=== PATIENT | male | born 2000 | race Hispanic/Latino ===

== ENCOUNTER 2025-05-16 12:26 | Observation (INO) | payer SELFPAY ==
[~2025-05-16] VITALS: Ht 170.2 cm; Wt 61.2 kg
--- NOTE | 2025-05-16 12:38 | ERN ---
ED Note History of Present Illness Stated Complaint: LEFT 1ST TOE PAIN Chief Complaint: Toe Pain/Injury Time Seen by MD: 12:30 Dictation: PATIENT IS A 25-YEAR-OLD MALE HERE WITH LEFT GREAT TOE PAIN AFTER HE DROPPED THE WEIGHT ON IT AT 05:00 THIS MORNING. Allergies: Coded Allergies: amoxicillin (Unverified Allergy, Unknown, 05/16/25) Home Meds Active Scripts Ibuprofen (Ibuprofen 800 mg Tab) 800 Mg Tab, 800 MG PO Q8H PRN for fever or pain, #30 TAB 0 Refills Prov:ISIDRO CARMONA DIRECTOR OF PHOTOGRAPHY 05/16/25 Past Medical History Past Medical History: No Pertinent History Surgical History: Appendectomy RN Note Reviewed/Agreed w/PFSH: Yes Review of System Dictation CONSTITUTIONAL: NEGATIVE EXCEPT FOR HPI HEAD/FACE: NEGATIVE EXCEPT FOR HPI EENT: NEGATIVE EXCEPT FOR HPI RESPIRATORY: NEGATIVE EXCEPT FOR HPI GASTROINTESTINAL/ABDOMINAL: NEGATIVE EXCEPT FOR HPI GENITOURINARY: NEGATIVE EXCEPT FOR HPI MUSCULOSKELETAL: NEGATIVE EXCEPT FOR HPI LEFT GREAT TOE PAIN WITH A ECCHYMOSIS INTEGUMENTARY: NEGATIVE EXCEPT FOR HPI NEUROLOGICAL/PSYCH: NEGATIVE EXCEPT FOR HPI HEMATOLOGIC/LYMPHATIC: NEGATIVE EXCEPT FOR HPI ALL SYSTEMS NEGATIVE, EXCEPT NOTED ABOVE. 13 POINT REVIEW OF SYSTEMS ASSESSED AND ALL NEGATIVE EXCEPT FOR ABOVE. Initial Vital Sign VS Vital Signs Date Time Temp Pulse Resp B/P (MAP) Pulse Ox O2 Delivery O2 Flow Rate FiO2 05/16/25 12:28 98.6 97 16 152/78 98 Room Air 0 Physical Exam Dictation VITAL SIGNS REVIEWED GENERAL APPEARANCE: ALERT, ORIENTED X 3, MODERATE ACUTE DISTRESS, WELL DEVELOPED, NOURISHED. HEAD AND FACE: NON-TRAUMATIC. EYES: PERRL, PINK CONJUNCTIVAS, EYELID NO TRAUMA, ANTERIOR CHAMBER WITH ARCUS SENILIS. EARS: PINNAS INTACT AND NO SIGNS OF TRAUMA OR ERYTHEMA EAR CANALS CLEAR AND NO DISCHARGE TM NO ERYTHEMA NOSE: NO DISCHARGE, NO BLEEDING. OROPHARYNX: MOUTH NORMAL, TONGUE PINK, PHARYNX CLEAR,NO ERYTHEMA, TONSILS NO EXUDATES, NO ABSCESSES NOTED, MUCOUS MEMBRANE MOIST NECK: SUPPLE, NON-TENDER, NO THYROMEGALY, NO MASSES, NO JVD, NO BRUITS BREAST:DEFERRED CHEST:NO TENDERNESS, NO CREPITUS, NO PARADOXICAL MOVEMENT, NO RETRACTIONS LUNGS:CLEAR, WELL-VENTILATED, SYMMETRIC, NO RALES, NO WHEEZING, NO RHONCHI, NO STRIDOR, GOOD BREATH SOUNDS BILATERALLY HEART: REGULAR RATE, REGULAR RHYTHM, NO MURMUR, NO GALLOPS VASCULAR: NO PERIPHERAL EDEMA, ABDOMEN: SOFT, POSITIVE BOWEL SOUNDS, NONDISTENDED, NO GUARDING, NONTENDER, NO REBOUND, NO MASSES NO HEPATOMEGALY, NO SPLENOMEGALY, NO MAY'S SIGN, NO HERNIAS. RECTAL: DEFERRED GENITAL: DEFERRED NEUROLOGICAL: NORMAL SPEECH, MOTOR FUNCTION INTACT, SENSORY FUNCTION INTACT MUSCULOSKELETAL: NECK NONTENDER, FULL RANGE OF MOTION, BACK NONTENDER, FULL RANGE OF MOTION, EXTREMITIES: LEFT PROXIMAL GREAT TOE PAIN SWELLING WITH ECCHYMOSIS. NAIL IS INTACT. SKIN: COLOR PINK, DRY, NO TURGOR, NO RASH, NO LACERATIONS, NO ABRASIONS, NO CONTUSIONS. LYMPHATIC: DEFERRED Results (Laboratory/Radiology) Laboratory/Radiology EXAM: CR left foot, 3 View. CLINICAL HISTORY: LEFT GREAT TOE PAIN AFTER DROPPING WEIGHT ON COMPARISON: None provided. FINDINGS: Mildly displaced extra-articular fracture of the mid to distal great toe proximal phalanx. Joint spaces remain anatomically aligned. Great toe soft tissue edema. IMPRESSION: 1. Mildly displaced extra-articular fracture of the mid to distal great toe proximal phalanx with associated soft tissue edema. /[place] Labs Reviewed?: Yes ED Course ED Course Orders Procedure Category Date Status Time Foot Comp 3+Vws Lt RAD 05/16/25 Resulted 12:36 Ibuprofen 800 Mg Tab PHA 05/16/25 Complete (Motrin) 13:00 Apply Ice Pack To: CPOE 05/16/25 Transmitted (Er) 12:36 Pepe Splint KATJA 05/16/25 In Process 15:37 Crutches W/Training CPOE 05/16/25 Transmitted (Er) 15:37 Edm Admit Bridge Order ADM 05/16/25 Transmitted 16:28 Current Medications Medications (Trade) Dose Ordered Sig/Vahe Route PRN Reason Start Time Stop Time Status Last Admin Dose Admin Ibuprofen (moTRIN) 800 mg ONCE ONCE PO 05/16/25 13:00 05/16/25 13:01 DC 05/16/25 14:19 Vital Signs Date Time Temp Pulse Resp B/P (MAP) Pulse Ox O2 Delivery O2 Flow Rate FiO2 05/16/25 12:28 98.6 97 16 152/78 98 Room Air 0 1550/LEFT PROXIMAL 1ST PHALANX FRACTURE. PEPE SPLINT WAS APPLIED TO 1ST AND 2ND TOES WITH PADDING. NEUROVASCULAR CMS INTACT POST PLACEMENT MOTHER PATIENT MADE AWARE OF FRACTURE AND TO FOLLOW UP WITH DR. AGAPITO PAYNE 1625/BETH RN SPOKE WITH DR. PAYNE AND HE WANTED PATIENT ADMITTED TO THE HOSPITAL FOR SURGERY IN THE MORNING. ORDERS WERE GIVEN Medical Decision Making MDM MEDICAL DISCHARGE MAKING BASED ON X-RAY OF LEFT FOOT AND EMPIRIC PAIN MANAGEMENT FOR PAIN. PATIENT HAS A LEFT 1ST PROXIMAL PHALANX FRACTURE PEPE TAPE WITH CRUTCHES WAS APPLIED IN PROVIDED PATIENT AWARE OF FOLLOWING UP WITH DR. AGAPITO PAYNE IN THE NEXT 1-2 DAYS. IBUPROFEN FOR PAIN DX & DISP Disposition: Inpatient Decision to Admit Time: 16:30 Departure Impression: Primary Impression: Fracture of proximal phalanx of left great toe Additional Impression: Blunt trauma Condition: Stable Scripts Ibuprofen (Ibuprofen 800 mg Tab) 800 Mg Tab 800 MG PO Q8H PRN for fever or pain, #30 TAB 0 Refills Prov: ISIDRO CARMONA 05/16/25 Additional Instructions: FOLLOW-UP WITH PRIMARY CARE PROVIDER IN 1 TO 2 DAYS. TAKE MEDICATIONS DIRECTED HERE IN THE EMERGENCY ROOM. OKAY TO CONTINUE HOME MEDICATIONS UNLESS OTHERWISE DISCUSSED DURING YOUR VISIT IN THE EMERGENCY ROOM TODAY. RETURN TO YOUR NEAREST EMERGENCY ROOM IF SYMPTOMS WORSEN OR IF THERE IS NO IMPROVEMENT. CALL 911 IF YOU NEED IMMEDIATE ASSISTANCE. TAKE TYLENOL OR MOTRIN [id number] NEEDED AND IF NO CONTRAINDICATIONS ARE PRESENT. INCREASE ORAL HYDRATION. A WOUND CULTURE OR URINE CULTURE WAS ORDERED HERE IN THE EMERGENCY ROOM DEPARTMENT PLEASE FOLLOW-UP WITH PRIMARY CARE PROVIDER AND ADVISE THEM TO GET REPEAT PORTS FROM OUR FACILITY. IF YOU HAD ANY WILLIAM WRAP/SPLINTS T HAT WERE APPLIED HERE, PLEASE DO NOT REMOVE THEM UNTIL YOU SEE YOUR PRIMARY CARE OR SPECIALTY. SPLINT TO TOES, NO WEIGHT-BEARING UNTIL CLEARED BY DR. PAYNE, CALL FOR AN APPOINTMENT TOMORROW. COOL COMPRESSES TO FOOT SEVERAL TIMES A DAY. TAKE IBUPROFEN NEEDED FOR PAIN WITH FOOD. NO TIGHT-FITTING SHOES UNTIL CLEARED BY ORTHOPEDICS. Referrals: SELF,REFERRAL (PCP) AGAPITO PAYNE MD Time of Disposition: 15:53 I have reviewed the case, and I agree with, Diagnosis and Plan ISIDRO CARMONA May 16, 2025 12:38
--- NOTE | 2025-05-16 14:09 | HMCIMG ---
EXAM: CR left foot, 3 View. CLINICAL HISTORY: LEFT GREAT TOE PAIN AFTER DROPPING WEIGHT ON COMPARISON: None provided. FINDINGS: Mildly displaced extra-articular fracture of the mid to distal great toe proximal phalanx. Joint spaces remain anatomically aligned. Great toe soft tissue edema. IMPRESSION: 1. Mildly displaced extra-articular fracture of the mid to distal great toe proximal phalanx with associated soft tissue edema. /[place]
[2025-05-16] MEDS ORDERED: IBUP-2077 PO (15:54)
--- NOTE | 2025-05-16 17:58 | NUR ---
REPORT GIVEN TO BHARGAVI VASQUEZ LVN SENT WITH PATIENT
[2025-05-16 18:26] VITALS: O2SAT 98
[2025-05-16 18:47] VITALS: BP 146/80; PULSE 66; RESP 16; TEMP 98.1
[2025-05-16 19:30] VITALS: BP 137/68; PULSE 82; RESP 19; TEMP 97.6
[2025-05-16 23:40] VITALS: BP 135/88; PULSE 64; RESP 19; TEMP 98
[2025-05-17] VITALS (20 sets, daily range): BP systolic 98–134; BP diastolic 41–84; PULSE 61–100; RESP 13–19; TEMP 97.8–98.4; O2SAT 98
[2025-05-17 07:03] LABS: IMMATURE GRANULOCYTE ABSOLUTE 0.02 K/uL (0-1); NUCLEATED RED BLOOD CELLS 0.0 % (0.0-0.19); PLATELET COUNT (AUTO) 193 K/uL (130-400); RED BLOOD CELL COUNT(AUTO) 4.93 MIL/uL (4.50-6.20); RED CELL DISTRIBUTION WIDTH 13.3 % (11.0-15.5); WHITE BLOOD COUNT (AUTO) 8.2 K/uL (4.8-10.8)
[2025-05-17 07:14] LABS: INR 0.97 (0.85-1.15)
[2025-05-17 07:18] LABS: CREATININE 0.9 mg/dL (0.5-1.3); GLOMERULAR FILTR. RATE CALC 122.0 mL/min (>90); GLUCOSE,RANDOM 102.0 mg/dL (70-105); SODIUM SERUM 140.0 mmol/L (136-145); UREA NITROGEN, BLOOD 14.0 mg/dL (7-18)
[2025-05-17] MEDS ORDERED: SUCCINYLCHOLINE CHLORIDE 20 MG/ML 10 ML VIAL ONE (07:23)
[2025-05-17] MEDS ORDERED: GLYCOPYRROLATE 0.2 MG/ML 5 ML VIAL ONE (07:23)
[2025-05-17] MEDS ORDERED: LIDOCAINE PF 100MG/5ML (2%) SYRINGE 5ML ONE (07:23)
[2025-05-17] MEDS ORDERED: MIDAZOLAM HCL 1 MG/ML 2ML VIAL ONE (07:24)
[2025-05-17] MEDS ORDERED: NEOSTIGMINE METHYLSULFATE 1MG/ML IV ONE (07:24)
[2025-05-17] MEDS ORDERED: PROMETHAZINE HCL 25 MG/ML 1ML AMPULE IM PRN ×2 (07:30→13:30)
--- NOTE | 2025-05-17 08:12 | HP ---
CHIEF COMPLAINT: Left great toe pain HISTORY OF PRESENT ILLNESS: 25-year-old male that sustained an injury to his left great toe after a 45 lb weight landed on it. The patient was wearing shoes. He was brought to the emergency room for evaluation and found to have significant swelling and discoloration of the toe and the x-rays revealed the presence of a transverse fracture of the proximal phalanx PAST MEDICAL HISTORY: Negative PAST SURGICAL HISTORY: Appendectomy ALLERGIES: Seasonal, amoxicillin SOCIAL HISTORY: History of tobacco use until a year ago (one pack per month), alcohol socially FAMILY HISTORY: Diabetes, hypertension, hypercholesterolemia REVIEW OF SYSTEMS: Negative except as above PHYSICAL EXAMINATION HEENT: Eyes with PERRLA, EOMI. Ears and nose with no deformities or drainage. Mouth with normal mucosa and dentition. Neck: Supple, central trachea, no masses, normal pulses. Chest: Lungs clear to auscultation bilaterally. Heart: regular rate and rhythms with no murmurs. Abdomen: Soft nontender nondistended, bowel sounds present Genital/rectal: Deferred Extremities: Within normal limits except for left great toe which has significant discoloration secondary to bruising, distal capillary refill is normal. The patient has donya tape of the 1st and 2nd toe maintaining adequate alignment. Neuro: Alert and oriented x3, motor and sensory intact. RADIOLOGIC STUDIES: X-rays of the left foot revealed the presence of a transverse fracture of the proximal phalanx distal shaft with distraction, acceptable alignment ASSESSMENT: Closed fracture left great toe proximal phalanx, displaced, transverse PLAN: The patient will be admitted and taken to the operating room for attempt a closed reduction pin fixation versus open reduction internal fixation. The patient understands the plan and agrees. AGAPITO PAYNE MD May 17, 2025 08:12
[2025-05-17] MEDS: FAMOTIDINE 20MG VIAL IV ONE (09:27)
[2025-05-17] MEDS: SUGAMMADEX SODIUM 200 MG/2 ML VIAL IV ONE (09:27)
[2025-05-17] MEDS: 0.9%NACL 1000ML 1,000 ML IV SCH (09:28)
[2025-05-17] MEDS ORDERED: HYDROcodone/APAP 5/325 1 TAB TABLET PO PRN (13:30)
--- NOTE | 2025-05-17 14:02 | OP ---
Operative Note: DATE OF PROCEDURE: 05/17/25 SURGEON: AGAPITO PAYNE MD INSURANCE AGENT: [Daphne Romeo CFA] ANESTHESIA: [General anesthesia plus regional block] ANESTHESIOLOGIST/COLLAR TACKER: [Saleem Quintero CRNA] PREOPERATIVE DIAGNOSIS: [Mid shaft fracture left foot great toe proximal phalanx fracture with possible intra-articular involvement] POSTOPERATIVE DIAGNOSIS: [Left foot great toe proximal phalanx comminuted fracture with intra-articular involvement] Implants: [[employer] 2.0 T-plate with locking and cortical screws] PROCEDURE: [Open reduction internal fixation of proximal phalanx of the left g reat toe] ESTIMATED BLOOD LOSS: [10 mL] INDICATIONS: [The patient is a 25-year-old male that sustained an injury to his left foot yesterday when he dropped a 45 lb weight on his foot which was protected by a shoe. He presented to the emergency room and he was found to have what seems to be a transverse fracture of the proximal phalanx of the left great toe with a questionable intra-articular involvement. The patient is brought to the operating room for closed versus open reduction internal fixation. The procedure was understood by the patient and mother as well as the risks involved, benefits and possible complications and he agreed to sign the consent form.] DESCRIPTION OF PROCEDURE: [After adequate general anesthesia was achieved the patient's left lower extremity was prepped and draped in the usual manner previous placement of the tourniquet in the proximal thigh. The extremity was elevated and the tourniquet inflated to 250 mmHg the Esmarch band being then removed. With the knee in semi flexion we proceeded to address the great toe and we proceeded to do an attempt to do a closed reduction by compression of the fracture fragment and we were unable to obtain an adequate closure of the fracture gap and for this reason we proceeded then to do an open reduction. A longitudinal incision was carried down the dorsal aspect of the great phalanx extending from the MTP joint to the IP joint through the skin followed by immediate dissection of the paratenon layer medially retracting the extensor tendon of the great toe laterally. This exposed the fracture fragment which had a small hematoma present and this was removed and we are able to manually reduce the fracture. We then proceeded to mold a T-plate from [employer] and had to cut the length of it as well as the T size and then the plate was molded to the distal condyles. X-rays were taken with the plate on top of the bone to determine how much of the longitudinal portion of the plate needed to be trimmed to match the length of the bone. Once this was achieved we proceeded to position the plate over the dorsum just distal to the MTP joint and we proceeded then to secure the plate with a locking screw in the most proximal hole which was figure four locking and cortical screws and obtained an adequate fixation, then we proceeded to put one of the most distal screws located in the center of the bone noticing that we had a adequate fixation. Then we proceeded to apply one more cortical screw proximally closed with a fracture and then another cortical to the most proximal hole, completed the fixation with the application of the medial and lateral locking screws of the most distal aspect of the tip plate. We then proceeded to explore the reduction noticing that there was an opening of the cortical fracture site in the shaft we we realized was related to a no the fracture present that extended all the way to the articular surface. We then proceeded to reduce it in the shaft and then a screw was placed across the shaft from lateral to medial previous drilling of the bone and reduce the fracture at this level and then after opening the joint distally and exposing the intra-articular fragment which was lateral we proceeded to maintain the good reduction that he had and secured it with the screw going from lateral to m edial to hold the fixation in place. The range of motion of the IP joint was checked noticing that there was a plantar click that resulted from the length of the distal screws in the T portion and we proceeded to remove the screws and cut 2 mm from each one of them distally and proceeded to re-apply the screws correcting the problem. X-rays were taken multiple times during the procedure being able to determine an adequate reduction of the fracture with a adequate alignment and we proceeded then to deflate the tourniquet that has a delayed response and bleeding of the toe but corrected properly with good capillary refill and then we proceeded to irrigate the wound with antibiotic solution copiously proceeded then to provide hemostasis and then to close the wound 1st by reapproximating the capsule of the IP joint with number 3-0 Vicryl simple stitches and then the paratenon fascia was reapproximated to the subcutaneous tissue laterally to reapproximate and center the tendon. We proceeded then to check the range of motion of the toe noticed it to be adequate. The subcutaneous tissue was closed with 3-0 Monocryl inverted stitches and the skin was then approximated with the use of 3-0 nylon sutures in a vertical manner. The foot was cleaned and then we proceeded to cover the incision with a Xeroform gauze, 4x4s and then an Colby wrap was applied around the foot and ankle. The patient was then placed in a foot postop shoe. At this time the drapes were removed then anesthesia proceeded to do a saphenous and popliteal nerve block. At the completion of this the patient was transferred to his bed and taken to recovery room for follow-up by anesthesia.] AGAPITO PAYNE MD May 17, 2025 14:02
[2025-05-18 00:23] VITALS: O2SAT 96
[2025-05-18 03:52] VITALS: BP 118/64; PULSE 81; RESP 18; TEMP 98.1
[2025-05-18 07:30] VITALS: O2SAT 96
[2025-05-18 07:50] VITALS: BP 124/69; PULSE 69; RESP 18; TEMP 97.7
--- NOTE | 2025-05-18 08:10 | PN ---
Ortho postop day one. This morning the patient is awake alert and oriented. Reporting adequate pain control. is at the bedside. No acute distress. Vital signs have remained stable he has been afebrile. Voiding on his own without difficulty already passing gas. Operative findings discussed with the patient. Dressing intact. He has he postop shoe. Gastrocnemius soft nontender. Physical therapy provided crutches. Patient is nonweightbearing I have discussed with the patient that he is able to heel touch for balance to avoid falls but avoid any full weight-bearing. The patient is anticipating going home today. Plan is to follow up in the clinic in 1-2 weeks. Assessment: Status post open reduction internal fixation left great toe proximal phalanx fracture. Plan: Continue with Dr. Rose plan of care and discharge planning Vitals/Labs Vital Signs Date Time Temp Pulse Resp B/P (MAP) Pulse Ox O2 Delivery O2 Flow Rate FiO2 05/18/25 07:50 97.7 69 18 124/69 96 Room Air 05/18/25 03:52 21 05/18/25 00:23 0 Medications Current Medications Ibuprofen 800 mg ONCE ONCE PO Last administered on 05/16/25at 14:19; Start 05/16/25 at 13:00; Stop 05/16/25 at 13:01; Status DC Acetaminophen/ Hydrocodone Bitart 1 tab Q4H PRN PO; Start 05/16/25 at 18:00; Stop 05/17/25 at 13:40; Status DC Ketorolac Tromethamine 15 mg Q6H PRN IV; Start 05/16/25 at 18:00; Stop 05/17/25 at 13:41; Status DC Ondansetron HCl 4 mg AD PRN IVP; Start 05/17/25 at 07:30; Stop 05/17/25 at 13:40; Status DC Metoclopramide HCl 10 mg AD PRN IVP; Start 05/17/25 at 07:30; Stop 05/17/25 at 13:40; Status DC Promethazine HCl 25 mg AD PRN IM; Start 05/17/25 at 07:30; Stop 05/17/25 at 13:40; Status DC Ketorolac Tromethamine 30 mg AD PRN IV; Start 05/17/25 at 07:30; Stop 05/17/25 at 13:40; Status DC Morphine Sulfate 2 mg AD PRN IVP; Start 05/17/25 at 07:30; Stop 05/17/25 at 13:40; Status DC Fentanyl Citrate 25 mcg Q5MIN PRN IVP; Start 05/17/25 at 07:30; Stop 05/17/25 at 13:40; Status DC Naloxone HCl 0.1 mg AD PRN IVP; Start 05/17/25 at 07:30; Stop 05/17/25 at 13:40; Status DC Dexamethasone Sodium Phosphate 10 mg STK-MED ONCE .ROUTE; Start 05/17/25 at 07:23; Stop 05/17/25 at 07:23; Status DC Ondansetron HCl 4 mg STK-MED ONCE .ROUTE; Start 05/17/25 at 07:23; Stop 05/17/25 at 07:23; Status DC Lidocaine HCl 100 mg STK-MED ONCE .ROUTE; Start 05/17/25 at 07:23; Stop 05/17/25 at 07:23; Status DC Propofol 200 mg STK-MED ONCE IV; Start 05/17/25 at 07:23; Stop 05/17/25 at 07:23; Status DC Succinylcholine Chloride 200 mg STK-MED ONCE .ROUTE; Start 05/17/25 at 07:23; Stop 05/17/25 at 07:23; Status DC Glycopyrrolate 1 mg STK-MED ONCE .ROUTE; Start 05/17/25 at 07:23; Stop 05/17/25 at 07:23; Status DC Fentanyl Citrate 100 mcg STK-MED ONCE .ROUTE; Start 05/17/25 at 07:23; Stop 05/17/25 at 07:23; Status DC Neostigmine Methylsulfate 10 mg STK-MED ONCE IV; Start 05/17/25 at 07:24; Stop 05/17/25 at 07:24; Status DC Rocuronium Dent 50 mg STK-MED ONCE .ROUTE; Start 05/17/25 at 07:24; Stop 05/17/25 at 07:24; Status DC Midazolam HCl 2 mg STK-MED ONCE .ROUTE; Start 05/17/25 at 07:24; Stop 05/17/25 at 07:24; Status DC Acetaminophen 100 ml @ As Directed STK-MED ONCE .ROUTE; Start 05/17/25 at 07:39; Stop 05/17/25 at 07:39; Status DC Famotidine 20 mg STK-MED ONCE IV; Start 05/17/25 at 07:39; Stop 05/17/25 at 07:39; Status DC Cefazolin Sodium 1 gm STK-MED ONCE .ROUTE; Start 05/17/25 at 08:24; Stop 05/17/25 at 08:24; Status DC Ropivacaine 150 mg STK-MED ONCE .ROUTE; Start 05/17/25 at 09:17; Stop 05/17/25 at 09:17; Status DC Fentanyl Citrate 100 mcg STK-MED ONCE .ROUTE; Start 05/17/25 at 09:59; Stop 05/17/25 at 09:59; Status DC Cefazolin Sodium 1 gm STK-MED ONCE .ROUTE; Start 05/17/25 at 10:16; Stop 05/17/25 at 10:16; Status DC Cefazolin Sodium 2 gm STK-MED ONCE IVPB Last administered on 05/17/25at 10:15; Start 05/17/25 at 10:15; Stop 05/17/25 at 10:20; Status DC Cefazolin Sodium 1 gm STK-MED ONCE IRRIG Last administered on 05/17/25at 10:19; Start 05/17/25 at 10:19; Stop 05/17/25 at 10:20; Status DC Fentanyl Citrate 100 mcg STK-MED ONCE .ROUTE; Start 05/17/25 at 11:26; Stop 05/17/25 at 11:26; Status DC Fentanyl Citrate 100 mcg STK-MED ONCE .ROUTE; Start 05/17/25 at 12:22; Stop 05/17/25 at 12:22; Status DC Sodium Chloride 1,000 ml @ 100 mls/hr Q10H IV; Start 05/17/25 at 13:30; Stop 05/18/25 at 13:29 Acetaminophen/ Hydrocodone Bitart 1 tab Q4H PRN PO; Start 05/17/25 at 13:30; Stop 05/22/25 at 13:29 Acetaminophen/ Hydrocodone Bitart 2 tab Q4H PRN PO; Start 05/17/25 at 13:30; Stop 05/22/25 at 13:29 Ketorolac Tromethamine 30 mg Q6H PRN IV Last administered on 05/17/25at 17:06; Start 05/17/25 at 13:30; Stop 05/22/25 at 13:29 Promethazine HCl 25 mg Q4H PRN IM; Start 05/17/25 at 13:30; Stop 06/16/25 at 13:29 Diphenhydramine HCl 25 mg Q6H PRN PO; Start 05/17/25 at 13:30; Stop 06/16/25 at 13:29 Cefazolin Sodium 2 gm Q8H IVP Last administered on 05/17/25at 21:21; Start 05/17/25 at 13:30; Stop 05/17/25 at 21:31; Status DC URIAH PICKETT RACQUET MAKER May 18, 2025 08:10
[2025-05-18] MEDS: HYDROcodone/APAP 5/325 1 TAB TABLET PO PRN (09:27)
[2025-05-18 12:00] VITALS: BP 133/67; PULSE 86; RESP 18; TEMP 97.8
[2025-05-18] MEDS ORDERED: HYDR-4060 PO (13:20)
--- NOTE | 2025-05-18 13:27 | DS ---
DISCHARGE SUMMARY Date of admission: 05/16/2025 Date of discharge: 05/18/2025 Final diagnosis: Left great toe proximal phalanx fracture Surgical procedures: Open reduction internal fixation left great toe proximal p halanx fracture Summary of History and Physical: Hospital course: Condition on discharge: Disposition: AGAPITO PAYNE MD May 18, 2025 13:27
--- NOTE | 2025-05-18 15:53 | NUR ---
DISCHARGE PIV DC'D PATIENT INFORMED OF FOLLOW UP APPOINTMENT WITH DR. PAYNE ON FRIDAY AT 0945. PATIENTS WOUND DRESSING WAS CHANGED PRIOR TO DISCHARGE PER ORDERS. PATIENT REMINDED THAT LEFT FOOT IS NON WEIGHT BEARING SO TO MAKE SURE HE DOESN'T PUT ANY WEIGHT ON IT AND USE HIS CRUTCHES. ALL QUESTIONS ANSWERED PRIOR TO DISCHARGE.
== END 2025-05-18 16:15 | disposition home or self-care (01) ==
LOC: EDH 12:26 → EDHIP 12:27 → 4AH 18:24
PROVIDERS: ADMIT Orthopaedic Surgery; ATTEND Orthopaedic Surgery
DX: S92.412A Displaced fracture of proximal phalanx of left great toe, initial encounter for closed fracture (principal); R79.1 Abnormal coagulation profile; W20.8XXA Other cause of strike by thrown, projected or falling object, initial encounter; Y92.89 Other specified places as the place of occurrence of the external cause; Y93.89 Activity, other specified; Y99.8 Other external cause status; Z87.891 Personal history of nicotine dependence; Z79.899 Other long term (current) drug therapy
CPT/HCPCS: 99284; 73630; 28505; 96374; 96376; 96375; 80048; 85025; 85610; 85730; 36415; 73660; 97161; 97116; 97530 ×2; C1713 ×7; G0378 ×27; J1308; J3010 ×4; J0690 ×6; J1100; J0330; J3490 ×2; J2003; J2250; J2704; J2405; J1885; J2710; J2795; A6223; A4649; A4930 ×3; A4223; A4222; A4216; A6450